=== PATIENT | female | born 1955 | race Caucasian/White ===

== ENCOUNTER 2019-03-05 12:19 | Day surgery (SDC) | payer MEDICARE, BC ==
[~2019-03-05 12:19] MED LIST: CLINDAMYCIN PHOSPHATE 900 MG/6 ML VIAL ONE; KETAMINE HCL 10 MG/ML ML ONE; LACTATED RINGERS 1,000 ML IV.SOLN IV ONE; LIDOCAINE HCL 1% PF 300MG/30ML VIAL ONE; LIDOCAINE HCL 2% PF 100MG/5ML VIAL IJ ONE; MIDAZOLAM HCL 2 MG/2 ML VIAL ONE; NORMAL SALINE 1,000 ML IV.SOLN IV ONE; fentaNYL CITRATE/PF 100 MCG/2 ML INJ. ONE
== END 2019-03-05 15:10 | disposition home or self-care (01) ==
LOC: OPSURG 12:19
PROVIDERS: ATTEND Physical Medicine & Rehabilitation
DX: M54.5 Low back pain (principal); M79.605 Pain in left leg; M79.604 Pain in right leg
CPT/HCPCS: 63688; J1815; J2001; J2250; J3010; J7030; J7120; 63685